=== PATIENT | female | born 1980 ===

== ENCOUNTER 2018-04-13 17:08 | Emergency (ER) | payer BC ==
--- NOTE | 2018-04-13 17:54 | UC ---
Lower Extremity/Ankle HPI - HPI Summary HPI Summary: 38 y/o female presents to the urgent care c/o c/o left 4th toe injury/pain, jammed it at home on her bed at 1200. Bruising. - History of Current Complaint Chief Complaint: UCLowerExtremity Stated Complaint: FOOT INJURY Time Seen by Provider: 04/13/18 17:50 Hx Obtained From: Patient Hx Last Menstrual Period: 2 wks ago Pain Intensity: 7 - Allergies/Home Medications Allergies/Adverse Reactions: Allergies Allergy/AdvReac Type Severity Reaction Status Date / Time Penicillins Allergy Rash Verified 04/13/18 17:39 PMH/Surg Hx/FS Hx/Imm Hx - Surgical History Surgical History: None - Social History Alcohol Use: None Substance Use Type: None Smoking Status (MU): Never Smoked Tobacco Physical Exam - Summary Physical Exam Summary: Vital Signs Reviewed: Yes General : well developed, well nourished female w/o any apparent distress Eyes: Positive: Conjunctiva Clear - PERRLA, EOMI ENT: Positive: Normal ENT inspection, Hearing grossly normal, Pharynx normal, TMs normal Neck: Positive: Supple, Nontender, No Lymphadenopathy Respiratory: Positive: Chest non-tender, Lungs clear, Normal breath sounds, No respiratory distress Cardiovascular: Positive: RRR, No Murmur, Pulses Normal Abdomen Description: Positive: Nontender, No Organomegaly, Soft. Negative: CVA Tenderness (R), CVA Tenderness (L) Bowel Sounds: Positive: Present Musculoskeletal: Positive: Strength Intact, ROM Intact, No Edema, Other: - Foot/ Toes: Pt is able to bear weight but ambulate with mild limping. RT foot :No surface trauma, ecchymosis, erythema, lesions, ulcers or break in skin integrity. The R foot is without obvious asymmetry or deformity when compared to the L foot. No bony step-off, No tenderness to palpation over toes, point tenderness over the dorsal side of mid foot and base of the 4th and 5th metatarsal and sole at the same level, no tenderness of hindfoot, Decrease plantar/dorsiflexion, inversion/eversion due to pain. Distal motor and neurovascular status are intact. Neurological Exam: Normal Psychological Exam: Normal Skin Exam: Normal Triage Information Reviewed: Yes Vital Signs: Initial Vital Signs Temp 98.9 F 04/13/18 17:34 Pulse 73 04/13/18 17:34 Resp 12 04/13/18 17:34 BP 122/82 04/13/18 17:34 Pulse Ox 100 04/13/18 17:34 Lower Extremity Course/Dx - Differential Dx/Diagnosis Differential Diagnosis/HQI/PQRI: Fracture (Closed) Provider Diagnoses: 1- left 4th toe pain s/p injury. 2-Left 4th toe non displaced fracture at the juntion of distal phalanx. 3-Left 4th toe Hematoma Discharge - Discharge Plan Condition: Stable Disposition: HOME Prescriptions: Bacitracin OINTMENT* 1 applic TOPICAL BID #1 tube Ibuprofen TAB* [Motrin TAB* 800 MG] 800 mg PO Q6H PRN #30 tab PRN Reason: Pain Patient Education Materials: Toe Fracture (ED) Referrals: [facility] [place] [facility] [Outside] - 1 Week Benji Luciano MD [Medical Doctor] - 2 Days Additional Instructions: 1-Please take medications as directed to alleviate pain and swelling. Pleas apply Bacitracin oint around abrasion as directed 2-Please apply ice, keep your foot immobilized with the Arvind bandage and post-op shoe. Avoid strenuous exercise or standing for long periods of time 3- Please f/u with your Orthopedic DR Luciano in 2-3 days for further evaluation and treatment on your toe fracture - Billing Disposition and Condition Condition: STABLE Disposition: Home
--- NOTE | 2018-04-13 18:25 | RAD ---
Indication: LEFT fourth toe pain following injury. Comparison: No relevant prior exams available on the [facility] [place]. Technique: 3 views LEFT fourth toe. Report: Normal articular alignment. Subtle transverse oriented trabecular irregularity at the level of the proximal metaphysis/diaphysis junction of the distal phalanx may represent a nondisplaced fracture given the clinical context. Fusiform soft tissue swelling. IMPRESSION: #. Potential nondisplaced nonarticular fracture at the proximal metaphysis/diaphysis junction of the distal phalanx.
[2018-04-13] MEDS ORDERED: Ibuprofen TAB* 400 MG PO ONE (19:00)
== END 2018-04-13 19:20 | disposition home or self-care (01) ==
LOC: UCEAST 17:08
DX: S99.922A Unspecified injury of left foot, initial encounter (principal); S90.122A Contusion of left lesser toe(s) without damage to nail, initial encounter; W23.0XXA Caught, crushed, jammed, or pinched between moving objects, initial encounter; Y93.9 Activity, unspecified; Y92.003 Bedroom of unspecified non-institutional (private) residence as the place of occurrence of the external cause; Z88.0 Allergy status to penicillin
CPT/HCPCS: 99203; A9270-GY; G0463